=== PATIENT | female | born 1995 | race Caucasian/White ===

== ENCOUNTER 2019-01-31 08:34 | Inpatient (IN) ==
[2019-01-31] MEDS ORDERED: ONDANSETRON 4 MG TAB.RAPDIS PO PRN (14:04)
[2019-01-31] MEDS ORDERED: OXYTOCIN/DEXTROSE 5%-WATER 30 UNITS/500 ML BAG IV ONE (14:04)
[2019-01-31] MEDS ORDERED: RINGER'S SOLUTION,LACTATED 1,000 ML IV PRN (14:04)
[2019-01-31] MEDS ORDERED: NALBUPHINE HCL 10 MG/ML AMPUL IV PRN ×2 (14:04)
[2019-01-31] MEDS ORDERED: MISOPROSTOL 100 MCG TABLET VG PRN (14:04)
[2019-01-31] MEDS ORDERED: RINGER'S SOLUTION,LACTATED 1,000 ML IV ONE (14:04)
[2019-01-31] MEDS ORDERED: LIDOCAINE HCL 50 ML VIAL PERI PRN (14:04)
[2019-01-31 14:16] LABS: Random Urine Total Protein 26.6 mg/dL (0-12)
[2019-01-31 14:18] LABS: Cocaine Ur Negative (NEGATIVE); Urine Barbiturate Negative (NEGATIVE); Urine Benzodiazepines Negative (NEGATIVE); Urine Opiates Negative (NEGATIVE); Urine PCP Negative (NEGATIVE); Urine THC Negative (NEGATIVE)
[2019-01-31 14:23] LABS: Hematocrit 31.2 % (37.0-47.0); Mean Cell Volume 81.3 fl (78-100); Mean Corpuscular Hgb Conc 32.1 g/dl (32-36); Mean Platelet Volume 10.1 fl (8-12.5); Neutrophil # 8.1 K/mm3 (1.3-6.0); Neutrophil % 78.1 % (42-75.0); Platelet Count 229 K/mm3 (150-450); Red Blood Count 3.84 M/mm3 (4.2-5.4); Red Cell Distribution Width 14.3 % (11.5-14.0); White Blood Count 10.3 K/mm3 (4.0-10.5)
[2019-01-31 14:35] LABS: Albumin * 2.3 gm/dl (3.4-5.0); Anion Gap 14.6 mmol/L (6.8-13.8); BUN/Creatinine Ratio 13.6 (9.0-21.6); Bilirubin, Total 0.5 mg/dL (0.0-1.1); Ca. Corrected For Albumin 9.3 mg/dL (8.4-10.2); Calcium * 8.3 mg/dL (7.9-10.9); Carbon Dioxide 22.9 mmol/L (24-32.6); Potassium 3.5 mmol/L (3.4-4.6); Total Protein 6.3 gm/dL (6.2-8.2)
--- NOTE | 2019-01-31 16:50 | HP ---
Chief Complaint - Chief Complaint Date of Service: 01/31/19 Time of Service: 16:30 Chief Complaint: Induction of labor History of Present Illness: 24 year old @ 37w 0d who denies ctx, vb or lof. Fetus is active. Pt denies headache, visual changes or abdominal pain. Medical History (Updated 01/24/19 @ 16:09 by Kellee Coon MD) Onset Date: ~06/2018 Round ligament pain Tonsillectomy planned Surgical History: Surgical History (Updated 12/01/18 @ 15:59 by Kellee Coon MD) History of sinus surgery History of umbilical hernia repair Hx of appendectomy Hx of cholecystectomy Family History: Family History (Last Reviewed 01/31/19 @ 16:32 by Kellee Coon MD) Grandmother Heart disease Diabetes Mother Alive and well Father Diabetes Social History: (Last Reviewed 01/31/19 @ 16:32 by Kellee Coon MD) Social History: adopted: No Marital status: Single household members: significant other, children number of children: 1 current occupational status: unemployed current occupation: [employer] Highest education level completed: 12th grade, no diploma Service: No Tobacco: Smoking Status: Never smoker Alcohol: alcohol intake: never Substance Use: substance use type: does not use Dietary Habits: caffeine: No Review Of Systems (GEN) - Review of Systems Generalized/Overall Review: Present: No Symptoms Reported Misc: All systems neg except as marked Immunizations: IMMUNIZATION HX Immunizations Up to Date Yes History of Influenza Vaccine Yes Hx Pneumococcal Vaccination No Allergies/Adverse Reactions: Allergies Allergy/AdvReac Type Severity Reaction Status Date / Time ibuprofen AdvReac Mild Other Verified 01/31/19 14:03 tape Allergy Mild Hives Uncoded 01/31/19 14:03 Home Medications: HOME MEDICATIONS cefuroxime axetil 500 mg tablet 500 mg PO BID 7 Days #14 tab 01/26/19 [Last Taken Unknown] Exam - Exam Vital Signs: Vital Signs - Last Taken Temp 36.6 C 01/31/19 14:08 Pulse 100 01/31/19 14:08 Resp 20 01/31/19 14:08 BP 169/80 H 01/31/19 14:08 Pulse Ox 100 01/31/19 14:08 Constitutional: Present: Alert, Oriented x3, Cooperative, No distress Respiratory: Present: lungs clear, normal breath sounds Cardiovascular/Chest: Present: regular rate, rhythm, no murmur Abdomen: Present: soft, nontender, nondistended Extremity: Present: non-tender, no calf tenderness Skin Exam: Present: normal color, warm/dry, no cyanosis Appearance: Present: appropriate appearance Eye contact: Present: cooperative Thoughts: Present: normal thought pattern Diagnostic Studies: Abnormal Lab Results 01/31/19 01/31/19 01/31/19 Range/Units 13:50 14:15 14:15 RBC 3.84 L (4.2-5.4) M/mm3 Hgb 10.0 L (12.5-16.0) gm/dL Hct 31.2 L (37.0-47.0) % MCH 26.0 L (27-31) pg RDW 14.3 H (11.5-14.0) % Immature Gran % (Auto) 0.90 H (0.001-0.429) % Immature Gran # (Auto) 0.09 H (0.000-0.0310) K/mm3 Neutrophils % 78.1 H (42-75.0) % Lymphocytes % 12.1 L (20-51) % Neutrophils # 8.1 H (1.3-6.0) K/mm3 Lymphocytes # 1.24 L (1.5-3.5) k/mm3 Carbon Dioxide 22.9 L (24-32.6) mmol/L Anion Gap 14.6 H (6.8-13.8) mmol/L Est GFR (Non-Af Amer) 187 H D (60-130) mL/min ALT 11 L (19-67) U/L Albumin 2.3 L (3.4-5.0) gm/dl U Random Total Protein 26.6 H (0-12) mg/dL U [place] Prot/Creat Ratio 217 H (0-199) mg/gm Laboratory Results WBC 10.3 K/mm3 (4.0-10.5) 01/31/19 14:15 RBC 3.84 M/mm3 (4.2-5.4) L 01/31/19 14:15 Hgb 10.0 gm/dL (12.5-16.0) L 01/31/19 14:15 Hct 31.2 % (37.0-47.0) L 01/31/19 14:15 MCV 81.3 fl (78-100) 01/31/19 14:15 MCH 26.0 pg (27-31) L 01/31/19 14:15 MCHC 32.1 g/dl (32-36) 01/31/19 14:15 RDW 14.3 % (11.5-14.0) H 01/31/19 14:15 Plt Count 229 K/mm3 (150-450) 01/31/19 14:15 MPV 10.1 fl (8-12.5) 01/31/19 14:15 Immature Gran % (Auto) 0.90 % (0.001-0.429) H 01/31/19 14:15 Immature Gran # (Auto) 0.09 K/mm3 (0.000-0.0310) H 01/31/19 14:15 78.1 % (42-75.0) H 01/31/19 14:15 12.1 % (20-51) L 01/31/19 14:15 7.9 % (0.0-9) 01/31/19 14:15 0.8 % (0.0-3.0) 01/31/19 14:15 0.2 % (0.0-1.0) 01/31/19 14:15 Nucleated RBC % 0.0 k/mm3 (0-1) 01/31/19 14:15 8.1 K/mm3 (1.3-6.0) H 01/31/19 14:15 1.24 k/mm3 (1.5-3.5) L 01/31/19 14:15 0.8 k/mm3 (0.0-1.0) 01/31/19 14:15 0.1 k/mm3 (0.0-0.7) 01/31/19 14:15 Absolute Basophils 0.0 k/mm3 (0.0-0.1) 01/31/19 14:15 Sodium 137 mmol/L (132-142) 01/31/19 14:15 137 mmol/L (130-142) 01/31/19 14:15 Potassium 3.5 mmol/L (3.4-4.6) 01/31/19 14:15 Chloride 103 mmol/L (97-106) 01/31/19 14:15 Carbon Dioxide 22.9 mmol/L (24-32.6) L 01/31/19 14:15 14.6 mmol/L (6.8-13.8) H 01/31/19 14:15 BUN 6 mg/dL (3-23) 01/31/19 14:15 0.44 mg/dL (0.4-1.4) 01/31/19 14:15 Est GFR (Non-Af Amer) 187 mL/min (60-130) H D 01/31/19 14:15 13.6 (9.0-21.6) 01/31/19 14:15 91 mg/dL (70-110) 01/31/19 14:15 Calcium 8.3 mg/dL (7.9-10.9) 01/31/19 14:15 Calcium Adj for Albumin 9.3 mg/dL (8.4-10.2) 01/31/19 14:15 0.5 mg/dL (0.0-1.1) 01/31/19 14:15 AST 11 U/L (0-48) 01/31/19 14:15 ALT 11 U/L (19-67) L 01/31/19 14:15 162 U/L (50-170) 01/31/19 14:15 6.3 gm/dL (6.2-8.2) 01/31/19 14:15 2.3 gm/dl (3.4-5.0) L 01/31/19 14:15 Ur Random Creatinine 122.6 mg/dL (60-200) 01/31/19 13:50 U Random Total Protein 26.6 mg/dL (0-12) H 01/31/19 13:50 U [place] Prot/Creat Ratio 217 mg/gm (0-199) H 01/31/19 13:50 Negative (NEGATIVE) 01/31/19 13:55 Negative (NEGATIVE) 01/31/19 13:55 Ur Phencyclidine Scrn Negative (NEGATIVE) 01/31/19 13:55 Urine Amphetamine Negative (NEGATIVE) 01/31/19 13:55 U Benzodiazepines Scrn Negative (NEGATIVE) 01/31/19 13:55 Negative (NEGATIVE) 01/31/19 13:55 Negative (NEGATIVE) 01/31/19 13:55 Blood Type O Positive 01/31/19 14:15 Antibody Screen Negative 01/31/19 14:15 Assessment/Plan - Narrative Narrative: 24 year old @ 37w 0d IOL for GHTN: pre-eclampsia labs normal today and increase in the patient's proteinuria but proteinuria is not in the pre-eclampsia range. BP initially in the severe range but once the appropriate cuff was placed BPs were in the mild range. The patient is asymptomatic. cvx is 2/40/-1 AROM for clear fluid, IUPC/FSE placed GBS negative: prophylaxis not indicated UTI: cefuroxime for 2 days to complete antibiotic course
[2019-01-31] MEDS ORDERED: NALOXONE HCL 1 MG/1 ML SYRG IV PRN (16:59)
[2019-01-31] MEDS ORDERED: BUPIVACAINE HCL/0.9 % NACL/PF 250 ML EP PRN (16:59)
[2019-01-31] MEDS ORDERED: ONDANSETRON HCL/PF 2 MG/ML VIAL IV PRN (16:59)
[2019-01-31] MEDS ORDERED: fentaNYL CITRATE/PF 50 MCG/ML AMPUL IT SCH (17:00)
--- NOTE | 2019-01-31 17:05 | ANES ---
Anesthesia Pre Procedure Eval Vitals/Labs: Last Vital Signs Temp 36.6 C 01/31/19 14:08 Pulse 100 01/31/19 14:08 Resp 20 01/31/19 14:08 BP 169/80 H 01/31/19 14:08 Pulse Ox 100 01/31/19 14:08 HOME MEDICATIONS cefuroxime axetil 500 mg tablet 500 mg PO BID 7 Days #14 tab 01/26/19 [Last Taken Unknown] Allergies/Adverse Reactions: Allergies Allergy/AdvReac Type Severity Reaction Status Date / Time ibuprofen AdvReac Mild Other Verified 01/31/19 14:03 tape Allergy Mild Hives Uncoded 01/31/19 14:03 - Planned Procedure Planned Procedure: INDUCTION 37 WEEKS Medication List Reviewed:: Yes Allergies Verified: Yes Medical History (Updated 01/24/19 @ 16:09 by Kellee Coon MD) Onset Date: ~06/2018 Round ligament pain Tonsillectomy planned Surgical History (Updated 12/01/18 @ 15:59 by Kellee Coon MD) History of sinus surgery History of umbilical hernia repair Hx of appendectomy Hx of cholecystectomy Family History (Last Reviewed 01/31/19 @ 17:02 by Cornelius Cardoso CRNA) Grandmother Heart disease Diabetes Mother Alive and well Father Diabetes - Family Anesthesia History Family History:: no untoward family reactions to anesthesia, no familial bleeding tendencies, no family history of clotting disorders, no family history of premature - Airway/Neck/Teeth Within Normal Limits:: Yes Teeth Condition: intact Neck Exam: full range of motion Mallampatti Score: 2 Thyromental (T-M) distance: > 6 cm Mandibulo Hyoid distance: > 3 cm - Respiratory Respiratory Physical: lungs clear Smoking Status: Never smoker Sleep Apnea currently treated: No Sleep Apnea by current assessment: No - Cardiovascular Tolerate Activity: Fair Heart Sounds: S1 & S2, Regular - Anesthesia Assessment and Plan ASA Class: PS, II, E Anesthesia Type Plan: Epidural - Membranes recently ruptured and Pitocin starting. Combination spinal epidural for labor analgesia.
--- NOTE | 2019-01-31 17:26 | ANES ---
Post Anesthesia Discharge - Transfer of Care Transfer of Care handoff given to nurse: Yes - Discharge from PACU Discharge from PACU when meets criteria: Yes - Comfortable post CSE.
--- NOTE | 2019-01-31 17:28 | ANES ---
Anesthesia Procedure Note Procedure Note: ANESTHESIA PROCEDURE NOTE Date of Procedure: [01/31/2019 Time of procedure: 1710. Performed by: LIZBET Alan CRNA, MSN Dietetics Director: Chrissie Gordon RN. Preprocedure diagnosis: Active labor, labor pain. Post procedure diagnosis: Same. Procedure:Epidural for labor analgesia L3-4. Indications: Labor pain. Findings: See below. Details of the procedure: The patient was placed on the side of the bed in sitting positionand prepped with DuraPrep then draped in a sterile fashion. Lidocaine 1% was infiltrated to the skin and subcutaneous tissues at the level of the L3-4 interspace. An 18-gauge Touhy needle was used to approach the epidural space with loss of resistance technique. Once loss of resistance was achieved a 27-gauge spinal needle was passed through the epidural needle and CSF was contacted. After CSF returned, 20 mcg of fentanyl was injected in the spinal needle was removed the epidural catheter was then threaded approximately 4 cm in the epidural needle was removed. The catheter was taped in place and after careful aspiration 3 mL of 1.5% lidocaine with 1-200,000 epinephrine was injected without change in maternal heart rate or sensorium. . EBL: Minimal. Fluids: N/A. Specimen: N/A. Post procedure condition: The patient tolerated the procedure well with [] relief. No complications were noted. Thank you for this consultation. Cornelius Cardoso CRNA, LIZBET, MSN
--- NOTE | 2019-01-31 17:36 | ANES ---
Post Anesthesia Assessment - Vital Signs Vitals: Last Vital Signs Temp 36.6 C 01/31/19 14:08 Pulse 100 01/31/19 14:08 Resp 20 01/31/19 14:08 BP 169/80 H 01/31/19 14:08 Pulse Ox 100 01/31/19 14:08 Airway Patency: Normal - Mental Status Level Of Consciousness: Awake, Alert, Appropriate - Pain Level Pain Score: 0 - N/V Assessment Nausea/Vomiting Presence: None Dehydration:: No
[2019-01-31] MEDS: CEFUROXIME AXETIL 500 MG TABLET PO SCH (18:16)
[2019-02-01] MEDS ORDERED: BISACODYL 10 MG SUPP.RECT RC PRN (01:23)
[2019-02-01] MEDS ORDERED: GLYCERIN/WITCH HAZEL LEAF 40 APPL BOX TP PRN (01:23)
[2019-02-01] MEDS ORDERED: HYDROCORTISONE 30 APPL TUBE TP PRN (01:23)
[2019-02-01] MEDS ORDERED: diphenhydrAMINE HCL 25 MG CAPSULE PO PRN (01:23)
[2019-02-01] MEDS ORDERED: IBUPROFEN 800 MG TABLET PO PRN (01:23)
[2019-02-01] MEDS ORDERED: oxyCODONE HCL/ACETAMINOPHEN 1 TAB TABLET PO PRN (01:23)
[2019-02-01] MEDS ORDERED: OXYTOCIN/DEXTROSE 5%-WATER 30 UNITS/500 ML BAG IV ONE (01:23)
[2019-02-01] MEDS ORDERED: SENNOSIDES 8.6 MG TABLET PO PRN (01:23)
[2019-02-01] MEDS ORDERED: BENZOCAINE/MENTHOL 81 SPRAY CAN TP PRN (01:23)
--- NOTE | 2019-02-01 01:24 | OR ---
Operative Report - Dictated Report Narrative: Date of delivery: 02/01/2019 Time of delivery: 010 Gender: male APGARS: 9/9 weight: 3015 grams Procedure: Description of the procedure: The patient is a 24 year old who presented to L&D for a medical induction of labor due to GHTN. She was induced with pitocin and augmented with AROM. There was light meconium. She progressed to complete dilation. She delivered a viable male in the CAROLA presentation. The shoulders delivered immediately and without any traction. A double nuchal cord was noted and reduced after delivery of the shoulders. The rest of the infant was delivered atraumatically. The cord was clamped and cut. The placenta delivered by expression and appeared intact. A 2 cm clot was noted on the placenta. There were no lacerations noted. Sponge, lap, and needle counts were correct. EBL: 50 mL Lacerations: none Complications: none Specimens: placenta to pathology History for Definition: * The number of deliveries resulting in a live the patient experienced prior to current hospitalization * The previous delivery of live twins or any live multiple gestation is considered one live event. *If primagravida or nulliparous is documented select zero for the number of previous live births. Live Events: 1
[2019-02-01] MEDS: oxyCODONE HCL/ACETAMINOPHEN 1 TAB TABLET PO PRN ×4 (02:38→17:49)
[2019-02-01] MEDS: CEFUROXIME AXETIL 500 MG TABLET PO SCH ×2 (05:39→17:48)
[2019-02-01] MEDS ORDERED: ACETAMINOPHEN 325 MG TABLET PO PRN (09:59)
[2019-02-01] MEDS: DOCUSATE SODIUM 100 MG CAPSULE PO SCH ×2 (10:05→21:32)
[2019-02-01 17:16] LABS: Hematocrit 31.7 % (37.0-47.0); Hemoglobin 10.2 gm/dL (12.5-16.0); Mean Cell Volume 81.3 fl (78-100); Mean Corpuscular Hemoglobin 26.2 pg (27-31); Mean Corpuscular Hgb Conc 32.2 g/dl (32-36); Mean Platelet Volume 9.7 fl (8-12.5); Neutrophil # 8.7 K/mm3 (1.3-6.0); Neutrophil % 76.5 % (42-75.0); Platelet Count 212 K/mm3 (150-450); Red Cell Distribution Width 14.2 % (11.5-14.0); White Blood Count 11.4 K/mm3 (4.0-10.5)
[2019-02-01 17:29] LABS: Albumin * 1.9 gm/dl (3.4-5.0); Anion Gap 12.7 mmol/L (6.8-13.8); BUN/Creatinine Ratio 14.6 (9.0-21.6); Bilirubin, Total 0.4 mg/dL (0.0-1.1); Ca. Corrected For Albumin 10.1 mg/dL (8.4-10.2); Calcium * 8.7 mg/dL (7.9-10.9); Potassium 3.7 mmol/L (3.4-4.6); Total Protein 5.7 gm/dL (6.2-8.2)
[2019-02-01 17:37] LABS: Random Urine Total Protein 15.4 mg/dL (0-12)
[2019-02-01] MEDS ORDERED: METOCLOPRAMIDE HCL 5 MG/ML VIAL IV PRN (18:25)
[2019-02-01] MEDS ORDERED: diphenhydrAMINE HCL 50 MG/ML VIAL IV ONE (18:30)
[2019-02-02] MEDS: oxyCODONE HCL/ACETAMINOPHEN 1 TAB TABLET PO PRN ×3 (01:15→22:04)
[2019-02-02] MEDS: CEFUROXIME AXETIL 500 MG TABLET PO SCH (04:33)
[2019-02-02] MEDS: DOCUSATE SODIUM 100 MG CAPSULE PO SCH (09:22)
--- NOTE | 2019-02-02 12:28 | PN ---
Subjective - Date and Time Seen Date: 02/02/19 Time: 09:00 Subjective Narrative: Patient without complaints Objective Objective Narrative: See vital signs - Review of Systems Generalized/Overall Review: Reports: No Symptoms Reported Misc: All systems neg except as marked - Vitals Vitals: Last Vital Signs Temp 36.4 C 02/02/19 02:13 Pulse 75 02/02/19 02:13 Resp 20 02/02/19 02:13 BP 122/56 02/02/19 02:13 Pulse Ox 100 02/02/19 02:13 - Abnormal Lab Findings Abnormal Lab Findings: Abnormal Lab Results 02/01/19 02/01/19 02/01/19 Range/Units 17:15 17:15 17:20 WBC 11.4 H (4.0-10.5) K/mm3 RBC 3.90 L (4.2-5.4) M/mm3 Hgb 10.2 L (12.5-16.0) gm/dL Hct 31.7 L (37.0-47.0) % MCH 26.2 L (27-31) pg RDW 14.2 H (11.5-14.0) % Immature Gran % (Auto) 0.60 H (0.001-0.429) % Immature Gran # (Auto) 0.07 H (0.000-0.0310) K/mm3 Neutrophils % 76.5 H (42-75.0) % Lymphocytes % 14.4 L (20-51) % Neutrophils # 8.7 H (1.3-6.0) K/mm3 Est GFR (Non-Af Amer) 169 H (60-130) mL/min ALT 11 L (19-67) U/L Total Protein 5.7 L (6.2-8.2) gm/dL Albumin 1.9 L (3.4-5.0) gm/dl U Random Total Protein 15.4 H (0-12) mg/dL - Exam Constitutional: Present: Alert, Oriented x3, Cooperative, No distress Abdomen: Present: soft, nontender - fundus is firm, nondistended Extremity: Present: non-tender, no calf tenderness Skin Exam: Present: normal color, warm/dry, no cyanosis Appearance: Present: appropriate appearance Eye contact: Present: cooperative Thoughts: Present: normal thought pattern Cauti Physician Documentation - Urinary Catheter Management Urethral (Ruiz) Urethral Indwelling: No Date of Insertion: 01/31/19 Time of Insertion: 17:57 Date of Removal: 02/01/19 Time of Removal: 01:00 Assessment/Plan Plan Narrative: PPD 1 s/p Doing well Discharge tomorrow
[2019-02-03] MEDS: DOCUSATE SODIUM 100 MG CAPSULE PO SCH ×2 (00:04→09:48)
--- NOTE | 2019-02-03 08:28 | PN ---
Subjective - Date and Time Seen Date: 02/03/19 Time: 08:26 Subjective Narrative: Patient without complaints Objective Objective Narrative: See vital signs - Review of Systems Generalized/Overall Review: Reports: No Symptoms Reported Misc: All systems neg except as marked - Vitals Vitals: Last Vital Signs Temp 36.2 C 02/03/19 06:45 Pulse 84 02/03/19 06:45 Resp 14 02/03/19 06:45 BP 125/75 02/03/19 06:45 Pulse Ox 99 02/03/19 06:45 - Exam Constitutional: Present: Alert, Oriented x3, Cooperative, No distress Abdomen: Present: soft, nontender, nondistended - fundus is firm Extremity: Present: non-tender, no calf tenderness Skin Exam: Present: normal color, warm/dry, no cyanosis Appearance: Present: appropriate appearance Eye contact: Present: cooperative Thoughts: Present: normal thought pattern Cauti Physician Documentation - Urinary Catheter Management Urethral (Ruiz) Urethral Indwelling: No Date of Insertion: 01/31/19 Time of Insertion: 17:57 Date of Removal: 02/01/19 Time of Removal: 01:00 Assessment/Plan Plan Narrative: PPD 2 s/p Doing well Discharge home
[2019-02-03] MEDS: oxyCODONE HCL/ACETAMINOPHEN 1 TAB TABLET PO PRN ×2 (11:45→15:38)
[2019-02-03 12:13] VITALS: BP 133/70
== END 2019-02-03 17:41 | disposition home or self-care (01) | DRG 806 ==
LOC: OB 13:55 → MS 02-02 17:49
PROVIDERS: ADMIT Obstetrics & Gynecology; ATTEND Obstetrics & Gynecology
CPT/HCPCS: 36415; 59025; 80053; 80307; 82570; 84155; 84156; 85025; 86850; 88307